=== PATIENT | female | born 1995 | race Caucasian/White ===

== ENCOUNTER 2017-01-12 00:44 | Emergency (ER) | payer MEDICAID, OTHER ==
[~2017-01-12] VITALS: Ht 160 cm; Wt 65.0 kg
[~2017-01-12 00:44] MED LIST: CEPH500 PO
[2017-01-12 00:46] VITALS: BP 123/79; PULSE 78; RESP 14; TEMP 97.9; O2SAT 99
--- NOTE | 2017-01-12 01:06 | PD ---
HPI Chief Complaint: GI Complaint Time Seen by Provider: 01:04 Travel History International Travel<30 days: No Contact w/Intl Traveler<30days: No Traveled to known affect area: No History of Present Illness HPI 21-year-old white female presents to emergency Department with complaints of nausea vomiting unable to keep anything down. She states that she drank a large amount of tequila today. She has had persistent nausea vomiting. She presents by EMS for evaluation of dehydration and vomiting. 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 She states that her birthday is coming up in the next few days and she was also upset regarding her boyfriend breaking up with her. She denies any suicidal or homicidal ideation. No toxic ingestions. She denies any recent illness. She denies any abdominal pain. No dysuria or frequency. No back pain. PFSH Past Medical History Narrative Medical Factor V Leiden deficiency Hx Anticoagulant Therapy: No Cardiovascular Problems: No Chemotherapy: No Cerebrovascular Accident: No Diabetes: No Diminished Hearing: No Respiratory: No Immunizations Current: Yes Tetanus Vaccination: < 5 Years ?: Not LMP: 01/04/17 : 1 Para: 1 Past Surgical History Section: Yes Hysterectomy: No Social History Alcohol Use: Yes (occ) Tobacco Use: No Substance Use: No Allergies-Medications (Allergen,Severity, Reaction): Coded Allergies: Olives (Verified Allergy, Severe, Hives, 01/12/17) Reported Meds & Prescriptions Reported Meds & Active Scripts Active Zofran (Ondansetron HCl) 4 Mg Tab 4 Mg PO Q6HR PRN Keflex 500 mg Cap (Cephalexin Monohydrate) 500 Mg Cap 500 Mg PO TID 7 Days Review of Systems Except as stated in HPI: all other systems reviewed are Neg Physical Exam Narrative GENERAL: Well-developed, well-nourished in no acute distress. Nontoxic appearing. Patient is holding an emesis bag with bile-appearing fluid in it. HEAD: Normocephalic, atraumatic. EYES: Pupils equal round and reactive. Extraocular motions intact. No scleral icterus. No injection or drainage. ENT: TMs clear without erythema. The external auditory canals clear. Nose: clear . Posterior pharynx is pink and moist. No tonsillar edema or exudate. Uvula midline. Airway patent. NECK: Trachea midline.Supple, nontender, moves head freely. No central bony tenderness or spasm. CARDIOVASCULAR: Regular rate and rhythm without murmurs, gallops, or rubs. RESPIRATORY: Clear to auscultation. Breath sounds equal bilaterally. No wheezes , rales, or rhonchi. GASTROINTESTINAL: Abdomen soft, non-tender, nondistended. No hepato-splenomegaly , or palpable masses. No guarding. EXTREMITIES: No clubbing, cyanosis, or edema. No joint tenderness, effusion, or edema noted. BACK: Nontender without deformity or crepitance. No flank tenderness. Data Data Last Documented VS Vital Signs Date Time Temp Pulse Resp B/P Pulse Ox O2 Delivery O2 Flow Rate FiO2 01/12/17 00:46 97.9 78 14 123/79 99 Room Air Orders Complete Blood Count With Diff (01/12/17 01:02) Comprehensive Metabolic Panel (01/12/17 01:02) Lipase (01/12/17 01:02) Iv Access Insert/Monitor (01/12/17 01:02) Sodium Chlor 0.9% 1000 Ml Inj (Ns 1000 M (01/12/17 01:15) Ondansetron Inj (Zofran Inj) (01/12/17 01:15) Ed Urine Pregnancytest Poc (01/12/17 01:07) Alcohol (Ethanol) (01/12/17 01:07) Labs Laboratory Tests Test 01/12/17 01/12/17 01:35 02:30 Sodium Level 141 MEQ/L Potassium Level 4.8 MEQ/L Chloride Level 106 MEQ/L Carbon Dioxide Level 24.9 MEQ/L Anion Gap 10 MEQ/L Blood Urea Nitrogen 7 MG/DL Creatinine 0.76 MG/DL Estimat Glomerular Filtration 96 ML/MIN Rate Random Glucose 88 MG/DL Calcium Level 8.9 MG/DL Total Bilirubin 0.5 MG/DL Aspartate Amino Transf 44 U/L (AST/SGOT) Alanine Aminotransferase 22 U/L (ALT/SGPT) Alkaline Phosphatase 51 U/L Total Protein 8.8 GM/DL Albumin 4.7 GM/DL Lipase 103 U/L White Blood Count 8.2 TH/MM3 Red Blood Count 5.18 MIL/MM3 Hemoglobin 14.8 GM/DL Hematocrit 43.9 % Mean Corpuscular Volume 84.7 FL Mean Corpuscular Hemoglobin 28.5 PG Mean Corpuscular Hemoglobin 33.6 % Concent Red Cell Distribution Width 13.2 % Platelet Count 196 TH/MM3 Mean Platelet Volume 9.7 FL Neutrophils (%) (Auto) 81.1 % Lymphocytes (%) (Auto) 15.9 % Monocytes (%) (Auto) 2.6 % Eosinophils (%) (Auto) 0.1 % Basophils (%) (Auto) 0.3 % Neutrophils # (Auto) 6.7 TH/MM3 Lymphocytes # (Auto) 1.3 TH/MM3 Monocytes # (Auto) 0.2 TH/MM3 Eosinophils # (Auto) 0.0 TH/MM3 Basophils # (Auto) 0.0 TH/MM3 CBC Comment DIFF FINAL Differential Comment MDM Medical Decision Making Medical Screen Exam Complete: Yes Emergency Medical Condition: Yes Medical Record Reviewed: Yes Interpretation(s) HCG negative Laboratory Tests Test 01/12/17 01:35 Sodium Level 141 MEQ/L Potassium Level 4.8 MEQ/L Chloride Level 106 MEQ/L Carbon Dioxide Level 24.9 MEQ/L Anion Gap 10 MEQ/L Blood Urea Nitrogen 7 MG/DL Creatinine 0.76 MG/DL Estimat Glomerular Filtration 96 ML/MIN Rate Random Glucose 88 MG/DL Calcium Level 8.9 MG/DL Total Bilirubin 0.5 MG/DL Aspartate Amino Transf 44 U/L (AST/SGOT) Alanine Aminotransferase 22 U/L (ALT/SGPT) Alkaline Phosphatase 51 U/L Total Protein 8.8 GM/DL Albumin 4.7 GM/DL Lipase 103 U/L Differential Diagnosis Differential diagnoses: Pancreatitis, hepatitis, dehydration, alcohol intoxication Narrative Course IV access is obtained. Patient's given Zofran 4 mg IV and 1 L bolus of normal saline. The patient has been given a by mouth challenge. She has passed this now. She states that she is feeling better. She is requesting discharge. This is vomiting, alcohol intoxication Diagnosis Primary Impression: Vomiting Qualified Code: R11.14 - Bilious vomiting with nausea Additional Impression: Alcohol intoxication Qualified Code: F10.120 - Alcohol intoxication, uncomplicated Patient Instructions: General Instructions Departure Forms: Tests/Procedures, Work Release Special Instructions: No work 01/12/17 Additional Instructions: Rest. Avoid alcohol. Zofran for nausea and vomiting. Force fluids today. Follow-up with a medical doctor on Saturday if symptoms persist. Return to the ER over the weekend if any problems develop. Med/Other Pt SpecificInfo: Prescription(s) given Scripts Ondansetron (Zofran)4 Mg Tab4 Mg PO Q6HR PRN (NAUSEA OR VOMITING) #6 TAB Prov:Beti Pritchard MD 01/12/17 Disposition: 01 DISCHARGE HOME Condition: Stable Eliezer Bhardwaj Jan 12, 2017 01:06
[2017-01-12] MEDS ORDERED: ONDANSETRON HCL 4 MG/2 ML VIAL IV PUSH ONE (01:15)
[2017-01-12] MEDS ORDERED: SODIUM CHLOR 0.9% 1000 ML INJ 1,000 ML IV ONE (01:15)
[2017-01-12 02:16] LABS: ALKALINE PHOSPHATASE 51 U/L (45-117); TOTAL BILIRUBIN ADULT 0.5 MG/DL (0.2-1.0)
[2017-01-12 02:24] LABS: ALT (GPT) 22 U/L (10-53); ANION GAP 10 MEQ/L (5-15); AST (GOT) 44 U/L (15-37); BICARBONATE 24.9 MEQ/L (21.0-32.0); BLOOD UREA NITROGEN 7 MG/DL (7-18); CHLORIDE 106 MEQ/L (98-107); GLOMERULAR FILTRATION RATE 96 ML/MIN (>89); POTASSIUM 4.8 MEQ/L (3.5-5.1); SODIUM (NA) 141 MEQ/L (136-145)
[2017-01-12 03:01] LABS: AUTOMATED NEUTROPHIL # 6.7 TH/MM3 (1.8-7.7); BASOPHIL % 0.3 % (0.0-2.0); EOSINOPHIL % 0.1 % (0.0-4.0); HEMATOCRIT 43.9 % (35.0-46.0); HEMO FLAGS DIFF FINAL; LYMPH % 15.9 % (9.0-44.0); LYMPHOCYTE # 1.3 TH/MM3 (1.0-4.8); MEAN CELL VOLUME 84.7 FL (80.0-100.0); MEAN CORPUSCULAR HEMOGLOBIN 28.5 PG (27.0-34.0); MEAN CORPUSCULAR HGB CONC 33.6 % (32.0-36.0); MONO % 2.6 % (0.0-8.0); NEUT % 81.1 % (16.0-70.0); PLATELET COUNT 196 TH/MM3 (150-450); RED BLOOD COUNT 5.18 MIL/MM3 (4.00-5.30); RED CELL DISTRIBUTION WIDTH 13.2 % (11.6-17.2); WHITE BLOOD COUNT 8.2 TH/MM3 (4.0-11.0)
[2017-01-12] MEDS ORDERED: ZOFR4TAB PO (03:03)
== END 2017-01-12 03:10 | disposition home or self-care (01) ==
LOC: NEPB 00:44
DX: R11.14 Bilious vomiting (principal); D68.51 Activated protein C resistance; F10.129 Alcohol abuse with intoxication, unspecified
CPT/HCPCS: 80053; 80320; 83690; 84703; 85025; 96374; 99284; J2405; J7030

== ENCOUNTER 2017-04-21 20:56 | Emergency (ER) | payer MEDICAID ==
[~2017-04-21] VITALS: Ht 167.6 cm; Wt 55.0 kg
[~2017-04-21 20:56] MED LIST changes: +ZOFR4TAB PO
[2017-04-21 20:59] VITALS: BP 119/90; PULSE 70; RESP 16; TEMP 98.4; O2SAT 98
--- NOTE | 2017-04-21 21:17 | PD ---
HPI Chief Complaint: Abdominal Pain Time Seen by Provider: 21:09 Travel History International Travel<30 days: No Contact w/Intl Traveler<30days: No Traveled to known affect area: No History of Present Illness HPI 22-year-old female , LMP March 14, here for evaluation of lower abdominal pain. Patient describes left lower quadrant pain which she has been experiencing intermittently for the last week. Pain is sharp and pressure-like , intermittent, sometimes worse with movements and palpation. She denies vaginal bleeding or discharge. No urinary symptoms. PFSH Past Medical History Hx Anticoagulant Therapy: No Cardiovascular Problems: No Chemotherapy: No Cerebrovascular Accident: No Diabetes: No Diminished Hearing: No Respiratory: No Immunizations Current: Yes : 1 Para: 1 Past Surgical History Section: Yes Hysterectomy: No Social History Alcohol Use: Yes (occ) Tobacco Use: No Substance Use: No Allergies-Medications (Allergen,Severity, Reaction): Coded Allergies: Olives (Verified Allergy, Severe, Hives, 04/21/17) Reported Meds & Prescriptions Reported Meds & Active Scripts Active Review of Systems Except as stated in HPI: all other systems reviewed are Neg Physical Exam Narrative GENERAL: Well-developed, well-nourished, comfortable, no acute distress. SKIN: Focused skin assessment warm/dry. HEAD: Atraumatic. Normocephalic. EYES: Pupils equal and round. No scleral icterus. No injection or drainage. ENT: Mucous membranes pink and moist. CARDIOVASCULAR: Regular rate and rhythm. RESPIRATORY: No accessory muscle use. Clear to auscultation. Breath sounds equal bilaterally. GASTROINTESTINAL: Abdomen soft, nondistended. Mild left lower quadrant tenderness without peritoneal signs. Normal bowel sounds. No hernias. MUSCULOSKELETAL: No obvious deformities. No clubbing. No cyanosis. No edema. NEUROLOGICAL: Awake and alert. No obvious cranial nerve deficits. Motor grossly within normal limits. Normal speech. PSYCHIATRIC: Appropriate mood and affect; insight and judgment normal. Data Data Last Documented VS Vital Signs Date Time Temp Pulse Resp B/P Pulse Ox O2 Delivery O2 Flow Rate FiO2 04/21/17 21:16 18 04/21/17 20:59 98.4 70 119/90 98 Room Air Orders Beta Hcg (Quant/Titer) (04/21/17 21:14) Complete Blood Count With Diff (04/21/17 21:14) Comprehensive Metabolic Panel (04/21/17 21:14) Urinalysis - C+S If Indicated (04/21/17 21:14) Ed Urine Pregnancytest Poc (04/21/17 21:14) Us Pelvis (Ques Pr/Ect)W Trans (04/21/17 ) Labs Laboratory Tests Test 04/21/17 04/21/17 21:25 23:27 White Blood Count 10.0 TH/MM3 Red Blood Count 5.56 MIL/MM3 Hemoglobin 15.6 GM/DL Hematocrit 47.9 % Mean Corpuscular Volume 86.2 FL Mean Corpuscular Hemoglobin 28.1 PG Mean Corpuscular Hemoglobin 32.6 % Concent Red Cell Distribution Width 13.3 % Platelet Count 180 TH/MM3 Mean Platelet Volume 10.0 FL Neutrophils (%) (Auto) 62.8 % Lymphocytes (%) (Auto) 28.0 % Monocytes (%) (Auto) 8.3 % Eosinophils (%) (Auto) 0.6 % Basophils (%) (Auto) 0.3 % Neutrophils # (Auto) 6.3 TH/MM3 Lymphocytes # (Auto) 2.8 TH/MM3 Monocytes # (Auto) 0.8 TH/MM3 Eosinophils # (Auto) 0.1 TH/MM3 Basophils # (Auto) 0.0 TH/MM3 CBC Comment DIFF FINAL Differential Comment Sodium Level 140 MEQ/L Potassium Level 3.6 MEQ/L Chloride Level 103 MEQ/L Carbon Dioxide Level 26.5 MEQ/L Anion Gap 11 MEQ/L Blood Urea Nitrogen 9 MG/DL Creatinine 0.60 MG/DL Estimat Glomerular Filtration 125 ML/MIN Rate Random Glucose 84 MG/DL Calcium Level 9.1 MG/DL Total Bilirubin 0.2 MG/DL Aspartate Amino Transf 14 U/L (AST/SGOT) Alanine Aminotransferase 20 U/L (ALT/SGPT) Alkaline Phosphatase 50 U/L Total Protein 8.1 GM/DL Albumin 4.3 GM/DL Human Chorionic Gonadotropin, 2142 MIU/ML Quant Urine Color LIGHT-YELLOW Urine Turbidity CLEAR Urine pH 6.0 Urine Specific [place] 1.009 Urine Protein NEG mg/dL Urine Glucose (UA) NEG mg/dL Urine Ketones TRACE mg/dL Urine Occult Blood NEG Urine Nitrite NEG Urine Bilirubin NEG Urine Urobilinogen LESS THAN 2.0 MG/DL Urine Leukocyte Esterase NEG Urine WBC LESS THAN 1 /hpf Urine Squamous Epithelial <1 /hpf Cells Urine Mucus FEW /lpf Microscopic Urinalysis Comment CULT NOT INDICATED MDM Medical Decision Making Medical Screen Exam Complete: Yes Emergency Medical Condition: Yes Medical Record Reviewed: Yes Differential Diagnosis , ectopic , ovarian cyst, ovarian torsion, UTI, cystitis Narrative Course Vital signs show heart rate 70, blood pressure 119/90, pulse ox 98% on room air , oral temp of 98.4F. CBC shows WBC 10, hemoglobin 15.6, hematocrit 47.9, platelets 180. CMP is unremarkable. UA: Trace ketones, few mucus, no bacteria, negative nitrites, negative leukocyte esterase. Beta hCG is 2142. PELVIC ULTRASOUND: FINDINGS: Intrauterine gestational sac is present measuring 7 mm corresponding to less than 5 weeks gestational age and no definite pole is identified. A yolk sac is visualized. There is no free fluid. There is a small 2.1 cm complex cyst in the right ovary. The uterus is retroverted. CONCLUSION: Early IUP and clinical follow up is suggested. Patient was made aware of all findings. She is resting comfortably. She is stable for discharge home out patient follow-up with her MANA[employer] doctor this week. She was informed on when to return to the emergency department. She verbalizes understanding and agreement with plan. Diagnosis Primary Impression: Early stage of Referrals: [employer] Outside Sales Representative 1 week Additional Instructions: Follow-up with your MANA[employer] [facility] doctor this week. Return to the emergency department for worsening symptoms or any other concerns. Disposition: 01 DISCHARGE HOME Condition: Stable Tez Chandler MD Apr 21, 2017 21:16
[2017-04-21 21:50] LABS: AUTOMATED NEUTROPHIL # 6.3 TH/MM3 (1.8-7.7); BASOPHIL % 0.3 % (0.0-2.0); EOSINOPHIL # 0.1 TH/MM3 (0-0.4); EOSINOPHIL % 0.6 % (0.0-4.0); HEMATOCRIT 47.9 % (35.0-46.0); HEMO FLAGS DIFF FINAL; LYMPHOCYTE # 2.8 TH/MM3 (1.0-4.8); MEAN CELL VOLUME 86.2 FL (80.0-100.0); MEAN CORPUSCULAR HEMOGLOBIN 28.1 PG (27.0-34.0); MEAN CORPUSCULAR HGB CONC 32.6 % (32.0-36.0); MONO % 8.3 % (0.0-8.0); NEUT % 62.8 % (16.0-70.0); PLATELET COUNT 180 TH/MM3 (150-450); RED BLOOD COUNT 5.56 MIL/MM3 (4.00-5.30); RED CELL DISTRIBUTION WIDTH 13.3 % (11.6-17.2)
[2017-04-21 22:13] LABS: ALT (GPT) 20 U/L (10-53); ANION GAP 11 MEQ/L (5-15); AST (GOT) 14 U/L (15-37); BICARBONATE 26.5 MEQ/L (21.0-32.0); BLOOD UREA NITROGEN 9 MG/DL (7-18); CHLORIDE 103 MEQ/L (98-107); GLOMERULAR FILTRATION RATE 125 ML/MIN (>89); POTASSIUM 3.6 MEQ/L (3.5-5.1); SODIUM (NA) 140 MEQ/L (136-145)
[2017-04-21 22:30] LABS: ALKALINE PHOSPHATASE 50 U/L (45-117); BETA HCG QUANT 2142 MIU/ML (0-5); TOTAL BILIRUBIN ADULT 0.2 MG/DL (0.2-1.0)
--- NOTE | 2017-04-21 23:13 | RADRPT ---
EXAM DATE/TIME: 04/21/2017 22:17 [facility] COMPARISON: No previous studies available for comparison. INDICATIONS : Pelvic pain with . LAB(S): Beta-hC MEDICAL HISTORY : . Factor 5 deficiency. SURGICAL HISTORY : section. ENCOUNTER: Initial ACUITY: 1 day PAIN SCORE: 4/10 LOCATION: Bilateral pelvis MEASUREMENTS: UTERUS: 10.0 x 6.7 x 4.9 cm ENDOMETRIAL STRIPE: 17 mm RIGHT OVARY: 3.4 x 3.2 x 1.8 cm LEFT OVARY: 3.0 x 1.8 x 1.6 cm FREE FLUID: No CROWN RUMP LENGTH: Not visualized FHR: Non visualized. BPM FINDINGS: Intrauterine gestational sac is present measuring 7 mm corresponding to less than 5 weeks gestational age and no definite pole is identified. A yolk sac is visualized. There is no free fluid. Ther e is a small 2.1 cm complex cyst in the right ovary. The uterus is retroverted. CONCLUSION: Early IUP and clinical follow up is suggested. Milena Garber MD on April 21, 2017 at 23:08 Board Certified Radiologist. This report was verified electronically.
[2017-04-21 23:39] LABS: BLOOD, URINE NEG (NEG); COMMENT (UR) CULT NOT INDICATED; CULTURE IF INDICATED CULT NOT INDICATED; GLUCOSE,URINE NEG (NEG); KETONE, URINE TRACE mg/dL (NEG); MUCUS URINE FEW /lpf (OCC); NITRITE,URINE NEG (NEG); SQUAMOUS EPITHELIAL CELL URINE <1 /hpf (0-5); URINE COLOR LIGHT-YELLOW (YELLW/STRAW)
== END 2017-04-21 23:55 | disposition home or self-care (01) ==
LOC: NEPD 20:56
DX: O26.91 Pregnancy related conditions, unspecified, first trimester (principal); Z3A.00 Weeks of gestation of pregnancy not specified
CPT/HCPCS: 76700; 76817; 80053; 81001; 84702; 84703; 85025; 99284

== ENCOUNTER 2017-10-22 13:41 | Emergency (ER) | payer MEDICAID ==
[~2017-10-22] VITALS: Ht 160 cm; Wt 56.0 kg
[2017-10-22 13:54] VITALS: BP 122/79; PULSE 75; RESP 18; TEMP 98.2; O2SAT 100
[2017-10-22 14:16] LABS: BLOOD, URINE MOD (NEG); GLUCOSE,URINE NEG (NEG); KETONE, URINE NEG (NEG); NITRITE,URINE NEG (NEG); PH, URINE 7.5 (5.0-8.5)
[2017-10-22 14:43] LABS: URINE COLOR YELLOW (YELLW/STRAW)
[2017-10-22 14:44] LABS: RBC, URINE 0-3 /hpf (0-3); WBC, URINE 0-2 /hpf (0-5)
[2017-10-22 14:45] LABS: COMMENT (UR) CULT NOT INDICATED; CULTURE IF INDICATED CULT NOT INDICATED
--- NOTE | 2017-10-22 15:11 | PD ---
HPI Chief Complaint: Abdominal Pain Time Seen by Provider: 14:59 Travel History International Travel<30 days: No Contact w/Intl Traveler<30days: No Traveled to known affect area: No History of Present Illness HPI This 22-year-old female is complaining of epigastric pain. She says the last 3 days been having epigastric pain. It's aggravated by any kind of eating. When she gets the pain can last up to an hour. She says that fatty foods in particular seem to aggravate it. She has tried antiacids and Advil without much response. She has had some stomach issues in the past. She had a colonoscopy at age 16 which was normal. She was 2 years ago. She is not aware of fever or chills. She says that there does seem to be a family history disposition of gallbladder disease. When she gets the pain it's across the epigastric area PFSH Past Medical History Hx Anticoagulant Therapy: No Cardiovascular Problems: No Chemotherapy: No Cerebrovascular Accident: No Diabetes: No Diminished Hearing: No Medical other: Yes (FACTOR FIVE) Respiratory: No Immunizations Current: Yes Tetanus Vaccination: < 5 Years Influenza Vaccination: Yes ?: Not LMP: NOW : 2 Para: 1 Past Surgical History Section: Yes Hysterectomy: No Social History Alcohol Use: Yes (1 GLASS WINE DAILY) Tobacco Use: No Substance Use: No Allergies-Medications (Allergen,Severity, Reaction): Coded Allergies: olive extract (Unverified Allergy, Severe, Hives, 10/22/17) Reported Meds & Prescriptions Reported Meds & Active Scripts Active No Active Prescriptions or Reported Medications Review of Systems General / Constitutional: No: Fever, Chills Eyes: No: Diploplia, Blurred Vision HENT: No: Headaches, Vertigo Cardiovascular: No: Chest Pain or Discomfort, Palpitations Gastrointestinal: Positive: Abdominal Pain Genitourinary: No: Urgency, Frequency Musculoskeletal: No: Myalgias, Arthralgias Skin: No Rash Neurologic: No: Weakness Physical Exam Narrative GENERAL: Well-developed female SKIN: Focused skin assessment warm/dry. HEAD: Atraumatic. Normocephalic. EYES: Pupils equal and round. No scleral icterus. No injection or drainage. ENT: No nasal bleeding or discharge. Mucous membranes pink and moist. NECK: Trachea midline. No JVD. CARDIOVASCULAR: Regular rate and rhythm. No murmur appreciated. RESPIRATORY: No accessory muscle use. Clear to auscultation. Breath sounds equal bilaterally. GASTROINTESTINAL: Abdomen soft, non-tender, nondistended. Hepatic and splenic margins not palpable. MUSCULOSKELETAL: No obvious deformities. No clubbing. No cyanosis. No edema. NEUROLOGICAL: Awake and alert. No obvious cranial nerve deficits. Motor grossly within normal limits. Normal speech. PSYCHIATRIC: Appropriate mood and affect; insight and judgment normal. Data Data Last Documented VS Vital Signs Date Time Temp Pulse Resp B/P (MAP) Pulse Ox O2 Delivery O2 Flow Rate FiO2 10/22/17 13:54 98.2 75 18 122/79 (93) 100 Orders Orders Ed Urine Pregnancytest Poc (10/22/17 14:08) Urinalysis - C+S If Indicated (10/22/17 14:08) Complete Blood Count With Diff (10/22/17 15:08) Comprehensive Metabolic Panel (10/22/17 15:08) Lipase (10/22/17 15:08) Us Abdomen Gallbladder (10/22/17 15:08) Labs Laboratory Tests Test 10/22/17 14:10 10/22/17 15:25 Urine Color YELLOW Urine Turbidity CLEAR Urine pH 7.5 Urine Specific [place] 1.007 Urine Protein NEG mg/dL Urine Glucose (UA) NEG mg/dL Urine Ketones NEG mg/dL Urine Occult Blood MOD Urine Nitrite NEG Urine Bilirubin NEG Urine Leukocyte Esterase NEG Urine RBC 0-3 /hpf Urine WBC 0-2 /hpf Urine Squamous Epithelial Cells 6-8 /hpf Urine Amorphous Sediment SMALL Microscopic Urinalysis Comment CULT NOT INDICATED White Blood Count 6.4 TH/MM3 Red Blood Count 4.86 MIL/MM3 Hemoglobin 13.8 GM/DL Hematocrit 41.0 % Mean Corpuscular Volume 84.5 FL Mean Corpuscular Hemoglobin 28.5 PG Mean Corpuscular Hemoglobin Concent 33.7 % Red Cell Distribution Width 12.7 % Platelet Count 193 TH/MM3 Mean Platelet Volume 8.6 FL Neutrophils (%) (Auto) 61.1 % Lymphocytes (%) (Auto) 30.8 % Monocytes (%) (Auto) 6.0 % Eosinophils (%) (Auto) 1.4 % Basophils (%) (Auto) 0.7 % Neutrophils # (Auto) 3.9 TH/MM3 Lymphocytes # (Auto) 2.0 TH/MM3 Monocytes # (Auto) 0.4 TH/MM3 Eosinophils # (Auto) 0.1 TH/MM3 Basophils # (Auto) 0.0 TH/MM3 CBC Comment DIFF FINAL Differential Comment Blood Urea Nitrogen 9 MG/DL Creatinine 0.64 MG/DL Random Glucose 83 MG/DL Total Protein 7.3 GM/DL Albumin 3.7 GM/DL Calcium Level 8.1 MG/DL Alkaline Phosphatase 49 U/L Aspartate Amino Transf (AST/SGOT) 14 U/L Alanine Aminotransferase (ALT/SGPT) 16 U/L Total Bilirubin 0.3 MG/DL Sodium Level 138 MEQ/L Potassium Level 3.8 MEQ/L Chloride Level 104 MEQ/L Carbon Dioxide Level 27.5 MEQ/L Anion Gap 7 MEQ/L Estimat Glomerular Filtration Rate 116 ML/MIN Lipase 217 U/L [facility] Medical Decision Making Medical Screen Exam Complete: Yes Emergency Medical Condition: Yes Medical Record Reviewed: Yes Differential Diagnosis Differential includes cholelithiasis, cholecystitis, ulcer disease, gastritis Narrative Course White count is 6000. Liver function tests are normal. Ultrasound of the gallbladder has been done Diagnosis Primary Impression: Gastritis Qualified Codes: K29.70 - Gastritis, unspecified, without bleeding Additional Instructions: Take Prilosec daily Scripts No Active Prescriptions or Reported Meds Disposition: DISCHARGE HOME Condition: Stable Ori Matthews MD Oct 22, 2017 15:11
[2017-10-22 15:28] LABS: AUTOMATED NEUTROPHIL # 3.9 TH/MM3 (1.8-7.7); BASOPHIL % 0.7 % (0.0-2.0); EOSINOPHIL # 0.1 TH/MM3 (0-0.4); EOSINOPHIL % 1.4 % (0.0-4.0); HEMO FLAGS DIFF FINAL; LYMPH % 30.8 % (9.0-44.0); MEAN CELL VOLUME 84.5 FL (80.0-100.0); MEAN CORPUSCULAR HEMOGLOBIN 28.5 PG (27.0-34.0); MEAN CORPUSCULAR HGB CONC 33.7 % (32.0-36.0); NEUT % 61.1 % (16.0-70.0); PLATELET COUNT 193 TH/MM3 (150-450); RED BLOOD COUNT 4.86 MIL/MM3 (4.00-5.30); RED CELL DISTRIBUTION WIDTH 12.7 % (11.6-17.2); WHITE BLOOD COUNT 6.4 TH/MM3 (4.0-11.0)
[2017-10-22 15:43] LABS: CHLORIDE 104 MEQ/L (98-107); POTASSIUM 3.8 MEQ/L (3.5-5.1); SODIUM (NA) 138 MEQ/L (136-145)
[2017-10-22 15:47] LABS: ANION GAP 7 MEQ/L (5-15); BICARBONATE 27.5 MEQ/L (21.0-32.0); BLOOD UREA NITROGEN 9 MG/DL (7-18)
[2017-10-22 15:50] LABS: ALT (GPT) 16 U/L (10-53); AST (GOT) 14 U/L (15-37); GLOMERULAR FILTRATION RATE 116 ML/MIN (>89)
[2017-10-22 15:51] LABS: TOTAL BILIRUBIN ADULT 0.3 MG/DL (0.2-1.0)
[2017-10-22 15:53] LABS: ALKALINE PHOSPHATASE 49 U/L (45-117)
--- NOTE | 2017-10-22 16:30 | RADRPT ---
EXAM DATE/TIME: 10/22/2017 15:42 [facility] COMPARISON: US PELVIS (QUEST PREG/ECTOPIC) W/TRANSVAG, April 21, 2017, 22:17. INDICATIONS : Right upper quadrant pain. MEDICAL HISTORY : Factor five. Ovarian cysts. SURGICAL HISTORY : section. ENCOUNTER: Initial ACUITY: 3 days PAIN SCORE: 2/10 LOCATION: Right upper quadrant MEASUREMENTS: LIVER: 15.3 cm length COMMON DUCT: 4 mm RIGHT KIDNEY: 11.4 x 5.6 x 4.8 cm FINDINGS: LIVER: Normal echotexture without focal lesion or ductal dilatation. COMMON DUCT: No intraluminal mass or stone visualized. GALLBLADDER: Contains no stones, demonstrates no wall thickening or pericholecystic fluid. PANCREAS: The visualized portions are within normal limits. RIGHT KIDNEY: No evidence of hydronephrosis, stone, or mass. CONCLUSION: 1. Normal examination. Gomez Adhikari MD on October 22, 2017 at 16:27 Board Certified Radiologist. This report was verified electronically.
[2017-10-22 16:47] VITALS: BP 119/77; PULSE 67; RESP 16; O2SAT 100
== END 2017-10-22 16:50 | disposition home or self-care (01) ==
LOC: PHED 13:41
DX: K29.70 Gastritis, unspecified, without bleeding (principal)
CPT/HCPCS: 76705; 80053; 81001; 83690; 84703; 85025; 99284

== ENCOUNTER 2018-06-04 17:41 | Inpatient (IN) ==
[2018-06-04 18:41] VITALS: RESP 18
[2018-06-04] MEDS ORDERED: Ibuprofen 600 MG Tablet PO PRN (22:44)
[2018-06-04] MEDS ORDERED: Aluminum/Magnesium/Simethacone Susp 30 ML UDC PO PRN (22:47)
[2018-06-05 06:10] VITALS: BP 120/72; PULSE 97; TEMP 98.4; O2SAT 100
[2018-06-05 07:43] LABS: Anion Gap 10 meq/L (5-15); Blood Urea Nitrogen 8 mg/dL (7-18); Calcium 8.2 mg/dL (8.5-10.1); Carbon Dioxide 24.3 meq/L (21.0-32.0); Chloride 106 meq/L (98-107); Cholesterol 148 mg/dL (120-200); Glomerular Filtration Rate Greater Than 89 mL/min (>89); Glucose,Random 76 mg/dL (74-106); Potassium 3.6 meq/L (3.5-5.1); Sodium 140 meq/L (136-145); Triglycerides 141 mg/dL (42-150)
[2018-06-05 07:45] LABS: Chol/HDL Ratio 2.52 Ratio; HDL Cholesterol 58.5 mg/dL (40.0-60.0); LDL Cholesterol,Calculated 61 mg/dL (0-99)
[2018-06-05 09:28] LABS: Hemoglobin A1c 4.6 % (4.3-6.0)
--- NOTE | 2018-06-05 15:09 | P.HPPSY ---
Provisional Diagnosis Admission Date: June 04, 2018 22:06 [place] I.: Adjustment disorder with depressed mood Competence Certification of Person's Competence To Provide Express and Informed Consent I have personally examined Leighann Buckley, a person being served at [facility] on, June 05, 2018 1431. Express and informed consent means consent voluntarily given in writing, by a competent person, after sufficient explanation and disclosure of the subject matter involved to enable the person to make a knowing and willful decision without any element of force, fraud, deceit, duress, or other form of constraint or coercion. This person is 18 years of age or older, is not now known to be incompetent to consent to treatment with a guardian advocate, and does not have a health care surrogate or proxy currently making medical treatment decisions. I have found this person to be one of the following: [xxx] Competent to provide express and informed consent, as defined above, for voluntary admission to this facility and is competent to provide express and informed consent for treatment. He/she has the consistent capacity to make well reasoned, willful, and knowing decisions concerning his or her medical or mental health treatment. The person fully and consistently understands the purpose of the admission for examination/placement and is fully capable of personally exercising all rights assured [place] Incompetent to provide express and informed consent to voluntary admission, and this is incompetent to provide express and informed consent to treatment. The person must be transferred to involuntary status and a petition for a guardian advocate filed with the Circuit Court. [] Refusing to provide express and informed consent to voluntary admission but is competent to provide express and informed consent for treatment. The person must be discharged or transferred to involuntary status. Form shall be completed within 24 hours of a person's arrival at the receiving facility and filed in the clinical record of each person: 1. Admitted on a voluntary basis 2. Permitted to provide express and informed consent to his/her own treatment 3. Allowed to transfer from involuntary to voluntary status 4. Prior to permitting a person to consent to his or her own treatment after having been previously found incompetent to consent to treatment. History of Present Illness Capacity: Has capacity History of Present Illness: Patient is a 23-year-old woman, single, domiciled with boyfriend, unemployed, with no formal past psychiatric history, no previous psychiatric admissions, no previous suicide attempt or self interest behavior, with a past medical history significant for factor V Leiden deficiency, was brought into the ED due to recent overdose and suspected suicide attempt which patient was admitted to the inpatient psychiatry for further evaluation and management. Discussion nursing staff reported the patient was regretful about her recent actions and denies having made any suicide attempt, as a cooperative and pleasant with staff on the unit. Patient was seen with nurse and medical student is noted to be sitting in hospital bed noted B, cooperative. Patient states that recently she has been having relationship discord with her boyfriend due to economic stressors as well as relationship discord and during the interim of the arguments she had taken a handful of Tylenol tablets and had taken them in front of her boyfriend and states that she "wanted to get a rise out of him". She mentions that she had been feeling pretty distraught and overwhelmed due to his recent argument with her boyfriend and has had difficulty managing ongoing stressors for the past couple of days where she has been having increased arguments with him due to the same. Patient reports that prior to this event her mood has been "fine" denying feeling sad or depressed, denies any frequent crying spells reports having adequate sleep, appetite and energy and concentration with no previous suicide ideations. Patient states that she had made a "childish responsible decision" states feeling disappointed in herself due to recent action and states that she simply "had a breakdown moment when I agree with my boyfriend". Patient this time denies any suicidal homicidal ideations, denies any perceptional services or delusions, rest of psychiatric review of systems are negative. Patient request to be discharged back to her home. Family psychiatric history: Denies, no suicides in the family Past medical history: No previous psychiatric diagnoses, no previous psychiatric admissions, suicide attempt or self interest behavior. Patient with no outpatient mental health provider. Patient reports previous use of Lyrica and Xanax years ago. Substance use history: Denies any illicit drug use but reports having used occasional marijuana use last time being more than a month ago, alcohol use 2 times per week usually 2 drinks at a time. 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 - Inpatient Certification I certify that the inpatient services were ordered in accordance with Medicare regulations governing the order. This includes certification that hospital inpatient services are reasonable and necessary and in the case of services not specified as inpatient-only under 42 CFR 419.22(n), that they are appropriately provided as inpatient services in accordance to with the 2-midnight benchmark under 43 CFR 412.3(e) I certify that inpatient psychiatric hospital services are medically necessary. Evaluation and treatment and/or diagnostic testing are expected to improve the patient's condition. The patient needs on a daily basis, active treatment furnished directly by or requiring the supervision of inpatient psychiatric facility personnel. Estimated Total Length of Stay (Days): 2 Plans for Post Hospital Care: Home Review of Systems All other systems reviewed negative except as stated in HPI [facility] - History History Provided By: Patient - Medical History Medical History: Medical History (Last Updated 06/04/18 @ 11:54 by Jenae Velez RN) Medical history unknown - Tobacco History Second Hand Smoke Exposure: No Smoking Status: Never smoker - Alcohol History How Often Do You Have a Drink Containing Alcohol: Never - Substance Use History Substance History: No History of Abuse - Travel History Recent Travel in the [place] Within the Last 8 Weeks: No Recent Travel Out of the Country Within the Last 8 Weeks: No - Immunization History Tetanus Immunization: Unsure Hx Influenza Vaccine This Season: Yes Quality Measures - Psychiatric History Psychological trauma history: Denies Violence risk to others in the last 6 months: Low Violence risk to self in the last 6 months: Low - Substance Abuse History Drug or alcohol use in the past 12 months: Occasional marijuana use and alcohol use 2 times per week usually 2 drinks at a time. - Patient Strengths Patient's strengths (minimum of 2): Verbal and communicative Medications and Allergies Active Medications: Active Medications Al Hydrox/Mg Hydrox/Simethicone (Mag-Al Plus Susp Liq) 30 ml PO Q6H PRN PRN Reason: DYSPEPSIA Al Hydroxide/Mg Hydroxide (Milk Of Magnesia Liq) 30 ml PO Q12H PRN PRN Reason: Mild Constipation Hydroxyzine HCl (Atarax) 50 mg PO Q6H PRN PRN Reason: ANXIETY Ibuprofen (Motrin) 600 mg PO Q6H PRN PRN Reason: PAIN SCALE 1 TO 10 Allergies Allergy/AdvReac Type Severity Reaction Status Date / Time olive extract Allergy Severe Hives Verified 06/04/18 11:52 diphenhydramine AdvReac Mild Insomnia Verified 06/04/18 20:11 [From Benadryl] Home Medications Medication Instructions Recorded Confirmed Type No Known Home Medications 06/04/18 06/04/18 History Results - Labs CBC & Chem 7: 06/05/18 05:49 Labs: Labs reviewed. Laboratory Results - last 24 hr 06/05/18 06/05/18 05:49 05:49 Sodium 140 Potassium 3.6 Chloride 106 Carbon Dioxide 24.3 Anion Gap 10 BUN 8 Creatinine 0.63 Estimated GFR Greater than 89 Random Glucose 76 Hemoglobin A1c 4.6 Calcium 8.2 L D Triglycerides 141 Cholesterol 148 LDL Cholesterol, Calc 61 HDL Cholesterol 58.5 Cholesterol/HDL Ratio 2.52 Exam Vital signs: Vital Signs 06/04/18 17:47 06/04/18 18:40 06/04/18 23:39 Temperature 98.4 F 98.1 F 97.7 F Pulse Rate 76 71 79 Respiratory Rate 16 18 18 Blood Pressure 130/82 129/86 125/84 Pulse Oximetry 99 97 99 06/05/18 06:09 Temperature 98.4 F Pulse Rate 97 H Respiratory Rate 18 Blood Pressure 120/72 Pulse Oximetry 100 Intake & Output 06/04/18 06/05/18 06/05/18 18:59 06:59 18:59 Weight 60.328 kg 61.6 kg Other: Weight On Admission 61.6 kg Narrative: Patient not noted to be in acute distress, no gross motor abnormalities, no tremors or EPS, no noted psychomotor retardation or agitation. Mental Status Examination Appearance: Appropriate Consciousness: Alert Orientation: x4 Motor Activity: Normal gait Speech: Unremarkable, Other Language: Adequate Fund of Knowledge: Adequate Attention and Concentration: Adequate Memory: Unremarkable Mood: Appropriate Affect: Appropriate Thought Process & Associations: Intact Thought Content: Appropriate Hallucination Type: None Delusion Type: None Suicidal Ideation: No Suicidal Plan: No Suicidal Intention: No Homicidal Ideation: No Homicidal Plan: No Homicidal Intention: No Insight: Adequate Judgment: Adequate Assessment and Plan - Assessment (1) Adjustment disorder with depressed mood Code(s): F43.21 - Adjustment disorder with depressed mood Status: Acute - Plan Plan: Estimated LOS: [] days Patient is a 23-year-old woman, domiciled with boyfriend, unemployed, with no formal past psychiatric history, no previous psychiatric admissions, no previous suicide attempt or self-injurious behavior, with a past medical history significant for factor V Leiden deficiency, who was brought in under Pena act due to recent overdose on cold medicine (12 tablets) after argument with boyfriend which patient was admitted to the inpatient psychiatry for further evaluation and management. Patient endorsing having had no intention of ending her life only to gain reaction from boyfriend and currently denies having made a suicide attempt and denies any suicide ideations. Although patient actions potentially could have been harmful, in the context of relationship discord an argument with boyfriend is currently at a lower imminent risk and patient's liver function is adequate for plan outpatient care. Patient currently with stable mood, has not been observed to have any symptoms or actions or behavior concerning for self-harm or harm to others on the unit. Patient will be discharged back to part his residence with plan outpatient mental health follow-up referral. Collateral information was obtained from patient's boyfriend which he did not have any safety concern of patient returning back to the home nor did he have any history of patient with self-injurious behavior or having made any suicidal statements prior to this incident and agrees with patient is discharged back to his residence. Patient advised to call and I want to go to nearest emergency room in case of emergency. Patient agrees with plan. Justification for Continued Inpatient Stay: At risk of further decompensation a lower level of care
--- NOTE | 2018-06-23 10:16 | ED ---
HPI General Chief Complaint: Psychiatric Symptoms Stated Complaint: Eval Vol Source: patient Mode of arrival: ambulatory Limitations: no limitations History of Present Illness HPI Narrative: The patient is a 23-year-old female was initially evaluated on June 04, 2018 after an intentional Tylenol overdose. The patient was medically cleared in the emergency department for psychiatric evaluation, however, left prior to seeing psychiatric services. The patient was called at home and told to return back to the emergency department as she was placed under a Pena act and need to be evaluated by psychiatry. The patient had take Tylenol earlier in the day to get a "rise out of by boyfriend ", was medically cleared in the emergency department after multiple Tylenol levels were evaluated and the patient was discussed with poison control. Related Data Home Medications Medication Instructions Recorded Confirmed No Known Home Medications 06/04/18 06/04/18 Allergies Allergy/AdvReac Type Severity Reaction Status Date / Time olive extract Allergy Severe Hives Verified 06/04/18 11:52 diphenhydramine AdvReac Mild Insomnia Verified 06/04/18 20:11 [From Benadryl] Review of Systems ROS: all other systems reviewed are negative [facility] Medical History Medical History Medical history unknown (Acute) Social History Social History Substance History: No History of Abuse Second Hand Smoke Exposure: No Smoking Status: Never smoker How Often Do You Have a Drink Containing Alcohol: Never Recent Travel in [facility] within the Last 8 Weeks: No Recent Out of Country Travel within the Last 8 Weeks: No Immunization History Tetanus Immunization: Unsure Hx Influenza Vaccine This Season: Yes Exam Narrative Exam Narrative: GENERAL: Awake, alert, nontoxic-appearing 23-year-old female appears her stated age and is in no acute respiratory distress. SKIN: Focused skin assessment warm/dry. HEAD: Atraumatic. Normocephalic. EYES: Pupils equal and round. No scleral icterus. No injection or drainage. ENT: No nasal bleeding or discharge. Mucous membranes pink and moist. NECK: Trachea midline. No JVD. CARDIOVASCULAR: Regular rate and rhythm. No murmur appreciated. RESPIRATORY: No accessory muscle use. Clear to auscultation. Breath sounds equal bilaterally. GASTROINTESTINAL: Abdomen soft, non-tender, nondistended. MUSCULOSKELETAL: No obvious deformities. No clubbing. No cyanosis. No edema. NEUROLOGICAL: Awake and alert. No obvious cranial nerve deficits. Motor grossly within normal limits. Normal speech. PSYCHIATRIC: Appropriate mood and affect; insight and judgment normal. Course Initial Documented Vital Signs Temperature 98.4 F 06/04/18 17:47 Pulse Rate 76 06/04/18 17:47 Respiratory Rate 16 06/04/18 17:47 Blood Pressure 130/82 06/04/18 17:47 Pulse Oximetry 99 06/04/18 17:47 Last Documented Vital Signs Temperature 98.4 F 06/05/18 06:09 Pulse Rate 97 H 06/05/18 06:09 Respiratory Rate 18 06/05/18 06:09 Blood Pressure 120/72 06/05/18 06:09 Pulse Oximetry 100 06/05/18 06:09 Medical Decision Making MDM Narrative Medical decision making narrative: I reviewed the patient's previous labs from earlier in the day, the patient was medically cleared to be evaluated by psychiatry. The patient was placed under a Pena act as she did have intent and had taken an intentional overdose of Tylenol in an attempt to get a reaction from her boyfriend. The patient is medically cleared to be evaluated by psychiatry. Disposition as per psych. Differential Diagnosis Differential Diagnosis: Differential diagnosis includes adjustment disorder, stress reaction, intentional Tylenol overdose, depressive disorder, dysthymia. Medical Records Medical records reviewed: Yes I reviewed the patient's medical records. I reviewed the patient's previous laboratory evaluation from earlier in the day after the intentional Tylenol overdose. Lab Data Result diagrams: 06/05/18 05:49 Lab Results 06/05/18 06/05/18 Range/Units 05:49 05:49 Sodium 140 (136-145) meq/L Potassium 3.6 (3.5-5.1) meq/L Chloride 106 (98-107) meq/L Carbon Dioxide 24.3 (21.0-32.0) meq/L Anion Gap 10 (5-15) meq/L BUN 8 (7-18) mg/dL Creatinine 0.63 (0.50-1.00) mg/dL Estimated GFR Greater than 89 (>89) mL/min Random Glucose 76 (74-106) mg/dL Hemoglobin A1c 4.6 (4.3-6.0) % Calcium 8.2 L D (8.5-10.1) mg/dL Triglycerides 141 (42-150) mg/dL Cholesterol 148 (120-200) mg/dL LDL Cholesterol, Calc 61 (0-99) mg/dL HDL Cholesterol 58.5 (40.0-60.0) mg/dL Cholesterol/HDL Ratio 2.52 Ratio Discharge Plan Discharge Disposition Patient Disposition: 01 Discharge Home Discharge Condition Condition: Stable Discharge Order Discharge Orders: Discharge Order (Routine); Ordered 06/05/18 Ordered By: Corona Casarez Discharge Details Diagnosis: Adjustment disorder with depressed mood Physicians Team ED Provider: Gael Yoo Primary Care Provider: Primary Care Radha Barnes Attending Provider: Corona Casarez Discharge Interventions Interventions: ED Discharge Assessment Last Done: 06/04/18 22:31 Vital Signs Last Done: 06/04/18 18:40 Status ED Status: Left Department Discharge Information Discharge Date/Time: 06/04/18 22:33
== END 2018-06-05 16:40 | disposition home or self-care (01) ==
LOC: NEPJ 17:41 → NEDA 22:06 → H260 22:28
PROVIDERS: ADMIT Student in an Organized Health Care Education/Training Program; ATTEND Student in an Organized Health Care Education/Training Program